=== PATIENT | male | born 1980 ===

== ENCOUNTER 2018-05-28 16:36 | Outpatient (REF) | payer SELFPAY ==
[2018-05-28 21:00] LABS: HCT 45.2 % (40.0-50.0); HGB 15.3 g/dL (13.5-17.5); Mean Corp. HGB Concentration 33.8 g/dL (32.0-36.0); Mean Corpuscular Hemoglobin 30.4 pg (27.0-33.0); Mean Corpuscular Volume 89.9 fL (80-95); Mean Platelet Volume 12.8 fL (8.0-11.0); Platelet Count 269 x1000/uL (130-400); RBC 5.03 m/cumm (4.50-6.00); RBC Distribution Width 12.8 % (11.8-14.1); White Blood Cell Count 8.26 k/cumm (4.4-10.8)
[2018-05-28 21:17] LABS: ALT 44 U/L (12-78); AST 17 U/L (15-37); Albumin 4.4 g/dL (3.4-5.0); Alkaline Phosphatase 139 U/L (46-116); Anion Gap 13.3 mmol/L (3-11); BUN 14 mg/dL (7-18); Bilirubin, Total 0.6 mg/dL (0.2-1.0); CO2 25.7 mmol/L (21.0-32.0); CREATININE 0.78 mg/dL (0.70-1.30); Calcium 9.6 mg/dL (8.5-10.1); Chloride 100 mmol/L (98-107); Glucose 340 mg/dL (70-100); Potassium 4.4 mmol/L (3.5-5.1); Sodium 139 mmol/L (136-145); TSH 1.08 uIU/mL (0.358-3.74); Total Protein 7.9 g/dL (6.4-8.2)
[2018-05-28 21:22] LABS: Hemoglobin A1C 10.5 % (4.5-6.2)
== END 2018-05-28 16:56 ==
LOC: NCHCN 16:36
PROVIDERS: Visit Provider Nurse Practitioner Family
DX: E11.9 Type 2 diabetes mellitus without complications (principal)
CPT/HCPCS: 80053; 85027; 83036; 84443